=== PATIENT | male | born 1975 | race Asian ===

== ENCOUNTER 2017-07-25 09:08 | Emergency (ER) | payer SELFPAY ==
[2017-07-25] MEDS ORDERED: PANTOPRAZOLE SODIUM 40 MG VIAL IV ONE (09:09)
[2017-07-25] MEDS ORDERED: ONDANSETRON HCL INJ/PF 4 MG/2 ML SDV IV ONE (09:09)
[2017-07-25] MEDS ORDERED: NORMAL SALINE 1000 ML 1,000 ML IV ONE (09:09)
--- NOTE | 2017-07-25 09:12 | ER Document Report ---
ED General - General Stated Complaint: ABDOMINAL PAIN/VOMITING Time Seen by Provider: 07/25/17 09:09 Notes: 41-year-old male originally from [place] with no known past medical history presents with vomiting 2 last night then black stool 3 with soft diarrhea type stool. Acute onset. Moderate intensity. Continuing. Minimal abdominal cramping now resolved. Per EMS he was tachycardic to the 130s with a normal blood pressure. He feels weak cold and pale. He has no history of liver disease that he knows of but had "a problem with my stomach" when back in [place]. Denies bright red blood per rectum currently but has had this in the past. Denies jaundice or icterus. - Related Data Allergies/Adverse Reactions: No Known Allergies Allergy (Unverified 07/25/17 09:56) Home Medications: Current Home Medications No Home Medications 07/25/17 [History] Past Medical History - Social History Smoking Status: Current Every Day Smoker Smoking Education Provided: Yes - The patient ED visit today was directly related to their abuse of tobacco. Frequency of alcohol use: Occasional Family History: None Review of Systems - Review of Systems Notes: REVIEW OF SYSTEMS GEN: Denies fever, chills, weight loss ENT: Denies sore throat, nasal discharge, ear pain EYES: Denies blurry vision, eye pain, discharge CV: Denies chest pain, palpitations, edema RESP: Denies cough, shortness of breath, wheezing GI: GI bleeding as above MSK: Denies joint pain/swelling, edema, SKIN: Denies rash, skin lesions LYMPH: Denies swollen glands/lymph nodes NEURO: Denies headache, focal weakness or numbness, dizziness PSYCH: Denies depression, suicidal or homicidal ideation PHYSICAL EXAMINATION General: Appears ill, possible pallor, shivering Head: Atraumatic, normocephalic ENT: Mouth normal, oropharynx moist, no exudates or tonsillar enlargement Eyes: Conjunctiva normal, pupils equal, lids normal Neck: No JVD, supple, no guarding CVS: Normal rate, regular rhythm, no murmurs Resp: No resp distress, equal and normal breath sounds bilaterally GI: Nondistended, soft, no tenderness to palpation, no rebound or guarding and hyperactive bowel sounds. Rectal exam shows fito melena. Ext: No deformities, no edema, normal range of motion in upper and lower ext Back: No CVA or midline TTP Skin: No rash, warm Lymphatic: No lymphadeopathy noted Neuro: Awake, alert. Face symmetric. GCS 15. Physical Exam - Vital signs Vitals: Resp BP Pulse Ox 23 H 116/83 99 07/25/17 09:31 12 09:31 07/25/17 09:31 Course - Re-evaluation Re-evalutation: 07/25/17 09:12 41-year-old male presents with signs and symptoms of GI bleed. Given the tachycardia and melena it is likely an upper GI bleed. He is at risk for liver disease given his rhythm is nationality and possible hep B infection however he has no known liver disease. His rectal exam shows melena and he is quite tachycardic raising the possibility of a brisk upper GI bleed. Not currently hypertensive but tachycardic. Will obtain type and screen CBC chemistry, established large-bore IV access, start Protonix bolus and drip, and await lab testing. We do not have gastroneurology rehabilitation psychologist today so I will attempt transfer to [facility] for higher level of care. 07/25/17 09:16 07/25/17 10:40 Reassessed at 10:30 AM. Heart rate 110, feeling better, no further melena. Labs show anemia of 10.8 with unknown baseline, increased BUN suggestive of slow upper GI bleed. Patient started on Protonix drip. He is getting IV hydration and will be n.p.o. I called [facility], spoke with Dr. Parry from the medical house staff service who accepted the patient on behalf of Dr. Lam. - Vital Signs Vital signs: Temp Pulse Resp BP Pulse Ox 23 H 116/83 99 07/25/17 09:31 07/25/17 09:31 07/25/17 09:31 - Laboratory Result Diagrams: 07/25/17 09:25 07/25/17 09:25 Laboratory results interpreted by me: 07/25/17 07/25/17 09:25 09:25 WBC 12.4 H RBC 3.33 L Hgb 10.8 L Hct 30.9 L BUN 41 H Glucose 125 H Total Protein 5.8 L Discharge - Discharge Clinical Impression: Upper GI bleed Condition: Good Disposition: [facility]
[2017-07-25 09:45] LABS: ABSOLUTE EOSINOPHILS # (AUTO) 0.2 10^3/uL (0.0-0.6); ABSOLUTE LYMPHOCYTES (AUTO) 3.4 10^3/uL (0.5-4.7); ABSOLUTE MONOCYTES (AUTO) 0.8 10^3/uL (0.1-1.4); ABSOLUTE NEUT (AUTO) 7.9 10^3/uL (1.7-8.2); BASOPHILS % (AUTO) 0.4 % (0-2); EOSINOPHILS % (AUTO) 1.7 % (0-6); HEMATOCRIT 30.9 % (37.9-51.0); HEMOGLOBIN 10.8 g/dL (13.5-17.0); HGB HCT DIFFERENCE 1.5; LYMPHOCYTES % (AUTO) 27.7 % (13-45); MEAN CORPUSCULAR HEMOGLOBIN 32.4 pg (27.0-33.4); MEAN CORPUSCULAR VOLUME 93 fl (80-97); MONOCYTES % (AUTO) 6.5 % (3-13); RED BLOOD COUNT 3.33 10^6/uL (4.35-5.55); SEGMENTED NEUTROPHILS % (AUTO) 63.7 % (42-78); WHITE BLOOD COUNT 12.4 10^3/uL (4.0-10.5)
[2017-07-25 09:46] LABS: PROTHROMBIN TIME 13.1 SEC (11.4-15.4)
[2017-07-25 10:05] LABS: ALANINE AMINOTRANSFERASE 31 U/L (21-72); ALBUMIN 3.8 g/dL (3.5-5.0); ALKALINE PHOSPHATASE 39 U/L (38-126); ANION GAP 12 (5-19); ASPARTATE AMINO TRANSFERASE 18 U/L (17-59); BILIRUBIN,DIRECT 0.4 mg/dL (0.0-0.4); BILIRUBIN,TOTAL 0.5 mg/dL (0.2-1.3); BLOOD UREA NITROGEN 41 mg/dL (7-20); CALCIUM 8.5 mg/dL (8.4-10.2); CARBON DIOXIDE 23 mmol/L (22-30); CHLORIDE 104 mmol/L (98-107); CREATININE RESULT 0.81 mg/dL (0.52-1.25); GLUCOSE 125 mg/dL (75-110); POTASSIUM 4.5 mmol/L (3.6-5.0); TOTAL PROTEIN 5.8 g/dL (6.3-8.2)
[2017-07-25] MEDS ORDERED: PANTOPRAZOLE SODIUM 40 MG VIAL IV PRN (10:23)
[2017-07-25] MEDS ORDERED: NICOTINE 14 MG/24 HR PATCH.TD24 TD ONE (10:44)
--- NOTE | 2017-07-25 12:33 | EKG REPORT ---
SEVERITY:- BORDERLINE ECG - SINUS TACHYCARDIA BORDERLINE T ABNORMALITIES, INFERIOR LEADS : Confirmed by: Tim Bill 25-Jul-2017 12:32:14
[2017-07-25] MEDS: PANTOPRAZOLE SODIUM 40 MG VIAL IV PRN (14:41)
[2017-07-25 22:12] LABS: ABSOLUTE EOSINOPHILS # (AUTO) 0.1 10^3/uL (0.0-0.6); ABSOLUTE LYMPHOCYTES (AUTO) 2.8 10^3/uL (0.5-4.7); ABSOLUTE MONOCYTES (AUTO) 0.8 10^3/uL (0.1-1.4); BASOPHILS % (AUTO) 0.5 % (0-2); EOSINOPHILS % (AUTO) 1.4 % (0-6); HEMATOCRIT 24.6 % (37.9-51.0); HGB HCT DIFFERENCE 1.2; LYMPHOCYTES % (AUTO) 28.7 % (13-45); MEAN CORPUSCULAR HEMOGLOBIN 32.6 pg (27.0-33.4); MEAN CORPUSCULAR VOLUME 93 fl (80-97); MONOCYTES % (AUTO) 8.3 % (3-13); RED BLOOD COUNT 2.64 10^6/uL (4.35-5.55); RED CELL DISTRIBUTION WIDTH 13.3 % (11.5-14.0); SEGMENTED NEUTROPHILS % (AUTO) 61.1 % (42-78); WHITE BLOOD COUNT 9.8 10^3/uL (4.0-10.5)
[2017-07-25 22:20] LABS: HEMOGLOBIN 8.6 g/dL (13.5-17.0)
--- NOTE | 2017-07-26 01:54 | ER Document Report ---
Doctor's Note Notes: 07/26/17 01:53 Patient remains hemodynamically stable. Hemoglobin has dropped significantly from initial check at 930 this morning from 10.8-8.6. He remains above transfusion threshold. We have updated [facility] continued not have any additional beds. A repeat CBC check has been ordered. Patient is typed and screened. Awaiting transfer
[2017-07-26] MEDS: PANTOPRAZOLE SODIUM 40 MG VIAL IV PRN ×2 (02:23→15:08)
[2017-07-26 02:27] LABS: ABSOLUTE EOSINOPHILS # (AUTO) 0.2 10^3/uL (0.0-0.6); ABSOLUTE LYMPHOCYTES (AUTO) 2.7 10^3/uL (0.5-4.7); ABSOLUTE MONOCYTES (AUTO) 0.8 10^3/uL (0.1-1.4); ABSOLUTE NEUT (AUTO) 5.7 10^3/uL (1.7-8.2); BASOPHILS % (AUTO) 0.5 % (0-2); EOSINOPHILS % (AUTO) 2.4 % (0-6); HEMATOCRIT 24.1 % (37.9-51.0); HEMOGLOBIN 8.3 g/dL (13.5-17.0); HGB HCT DIFFERENCE 0.8; LYMPHOCYTES % (AUTO) 28.1 % (13-45); MEAN CORPUSCULAR HGB CONC 34.3 g/dL (32.0-36.0); MEAN CORPUSCULAR VOLUME 93 fl (80-97); MONOCYTES % (AUTO) 8.5 % (3-13); RED BLOOD COUNT 2.59 10^6/uL (4.35-5.55); RED CELL DISTRIBUTION WIDTH 13.1 % (11.5-14.0); SEGMENTED NEUTROPHILS % (AUTO) 60.5 % (42-78); WHITE BLOOD COUNT 9.4 10^3/uL (4.0-10.5)
[2017-07-26 07:14] LABS: HEMATOCRIT 25.7 % (37.9-51.0); HEMOGLOBIN 8.8 g/dL (13.5-17.0); HGB HCT DIFFERENCE 0.7; MEAN CORPUSCULAR HEMOGLOBIN 32.1 pg (27.0-33.4); MEAN CORPUSCULAR HGB CONC 34.3 g/dL (32.0-36.0); MEAN CORPUSCULAR VOLUME 94 fl (80-97); RED BLOOD COUNT 2.74 10^6/uL (4.35-5.55); RED CELL DISTRIBUTION WIDTH 13.2 % (11.5-14.0); WHITE BLOOD COUNT 10.4 10^3/uL (4.0-10.5)
[2017-07-26 11:10] LABS: ABSOLUTE LYMPHOCYTES (AUTO) 2.2 10^3/uL (0.5-4.7); ABSOLUTE MONOCYTES (AUTO) 0.7 10^3/uL (0.1-1.4)
[2017-07-26 11:18] LABS: ABSOLUTE BASOPHILS # (AUTO) 0.1 10^3/uL (0.0-0.2); ABSOLUTE EOSINOPHILS # (AUTO) 0.2 10^3/uL (0.0-0.6); BASOPHILS % (AUTO) 0.7 % (0-2); EOSINOPHILS % (AUTO) 2.3 % (0-6); HEMATOCRIT 23.4 % (37.9-51.0); HEMOGLOBIN 8.2 g/dL (13.5-17.0); HGB HCT DIFFERENCE 1.2; LYMPHOCYTES % (AUTO) 26.9 % (13-45); MEAN CORPUSCULAR HEMOGLOBIN 32.8 pg (27.0-33.4); MEAN CORPUSCULAR VOLUME 94 fl (80-97); RED CELL DISTRIBUTION WIDTH 12.7 % (11.5-14.0); SEGMENTED NEUTROPHILS % (AUTO) 61.1 % (42-78); WHITE BLOOD COUNT 8.2 10^3/uL (4.0-10.5)
[2017-07-26] MEDS ORDERED: NORMAL SALINE 1000 ML 1,000 ML IV ONE (15:23)
[2017-07-26] MEDS ORDERED: DEXTROSE 5%-1/2 NORMAL SALINE 1,000 ML IV ONE (18:42)
[2017-07-26 19:35] LABS: ABSOLUTE EOSINOPHILS # (AUTO) 0.1 10^3/uL (0.0-0.6); ABSOLUTE LYMPHOCYTES (AUTO) 1.7 10^3/uL (0.5-4.7); ABSOLUTE MONOCYTES (AUTO) 0.6 10^3/uL (0.1-1.4); ABSOLUTE NEUT (AUTO) 4.4 10^3/uL (1.7-8.2); BASOPHILS % (AUTO) 0.6 % (0-2); EOSINOPHILS % (AUTO) 1.3 % (0-6); HEMATOCRIT 22.1 % (37.9-51.0); HGB HCT DIFFERENCE 0.4; LYMPHOCYTES % (AUTO) 24.9 % (13-45); MEAN CORPUSCULAR HEMOGLOBIN 31.9 pg (27.0-33.4); MEAN CORPUSCULAR HGB CONC 33.7 g/dL (32.0-36.0); MEAN CORPUSCULAR VOLUME 95 fl (80-97); MONOCYTES % (AUTO) 8.2 % (3-13); RED BLOOD COUNT 2.34 10^6/uL (4.35-5.55); WHITE BLOOD COUNT 6.7 10^3/uL (4.0-10.5)
--- NOTE | 2017-07-26 19:35 | ER Document Report ---
Doctor's Note Notes: 07/26/17 19:31 Have been taking care of this patient throughout the day today. Initially, made rounds around 10 AM this morning. Found that the patient had been running a marginally low blood pressure and slight tachycardia. I noted that the patient had a hemoglobin initially of 10.8, but then it dropped down to the low eights and was anywhere from 8.3-8.8. A repeat hemoglobin after that was 8.2 at 11 AM today. Spoke with the physician and Anuj Day, Dr. Hale, who recommended IV fluids and they will try to find a bed for him at their facility. Patient reports that he has not had any bloody stools today. His abdomen is soft and nontender. Patient has had a liter of saline throughout the afternoon. I am now following that with a liter of D5 and half-normal saline at 125 an hour. A repeat CBC has been ordered and is pending. If his hemoglobin is below 8, we will transfuse.
[2017-07-26 19:48] LABS: HEMOGLOBIN 7.5 g/dL (13.5-17.0)
[2017-07-26] MEDS ORDERED: NORMAL SALINE 250 ML IV PRN (20:09)
[2017-07-26 22:22] VITALS: BP 117/68
== END 2017-07-26 22:33 | disposition short-term general hospital (02) ==
LOC: ER 09:08
DX: K92.2 Gastrointestinal hemorrhage, unspecified (principal); R10.9 Unspecified abdominal pain; R11.10 Vomiting, unspecified; R19.7 Diarrhea, unspecified; R00.0 Tachycardia, unspecified; F17.200 Nicotine dependence, unspecified, uncomplicated
CPT/HCPCS: 93005; 99285; 96361; 96375; 96365; 96366; 86900; 86901; 36415; 36430; 86850; 85025; 85027; 85610; 80076; 80048; 86920; 83605; 93010; P9016; S0164 ×2; J2405; J7030 ×2